=== PATIENT | male | born 1965 | race Caucasian/White ===

== ENCOUNTER 2019-09-07 10:33 | Inpatient (IN) ==
--- NOTE | 2019-09-07 11:19 | PROVIDER DOCUMENTATION ---
HPI-General Adult - General Chief Complaint: Shortness of Breath Stated Complaint: CHF,FLUID BUILD UP Time Seen by Provider: 09/07/19 11:05 Source: patient, family Allergies/Adverse Reactions: Patient Allergies Allergy/AdvReac Type Severity Reaction Status Date / Time vancomycin Allergy RASH Verified 05/25/19 15:24 Home Medications: Home Medication List Medication Instructions Recorded Confirmed Last Taken Type Apixaban [Eliquis] 2.5 mg PO BID 09/07/19 09/07/19 09/07/19 08:00 History 2.5 mg Clindamycin [Cleocin] 300 mg PO TID 09/07/19 09/07/19 09/07/19 08:00 History 300 mg Cyclobenzaprine [Flexeril] 10 mg PO TID 09/07/19 09/07/19 09/07/19 08:00 History 10 mg Fluoxetine [Prozac] 20 mg PO DAILY 09/07/19 09/07/19 09/07/19 08:00 History 20 mg Furosemide 40 mg PO BID 09/07/19 09/07/19 09/07/19 08:00 History 40 mg Gabapentin 600 mg PO Q12HR 09/07/19 09/07/19 09/07/19 08:00 History 600 mg Metformin [Glucophage] 500 mg PO BID 09/07/19 09/07/19 09/07/19 08:00 History 500 mg Omeprazole [Prilosec] 20 mg PO DAILY@0700 09/07/19 09/07/19 09/07/19 08:00 History 20 mg Potassium Chloride [Klor-Con M20] 20 meq PO DAILY 09/07/19 09/07/19 09/07/19 08:00 History 20 meq - History of Present Illness -Gen Adult Nature of Presenting Problems: Pt. is 54 yom that presents with c/o abdominal swelling, SOB, and weight gain since [place]. He denies any other complaints. Location of Pain/Injury: reports: none. denies: head, face, mouth, neck, chest, upper extremity, hand(s), abdomen, back, pelvis, genitalia, lower extremity, feet, upper body, lower body, generalized, other Pain Radiation: reports: no radiation. denies: arm(s), back, buttocks, chest, epigastric, feet, groin, jaw, flank (L), legs (lower), LLQ, LUQ, neck, periumbilical, flank (R), RLQ, RUQ, shoulder(s), scapula, scrotal, sternal notch, suprapubic, legs (upper), urethral, vaginal, other Quality of Pain: reports: none. denies: aching, pressure, tightness Severity: reports: moderate. denies: mild, severe Onset/Duration: reports: gradual, other (2 weeks) Timing: reports: still present. denies: improving, intermittent, getting worse Context/Activities at Onset: reports: none. denies: light activity, moderate activity, vigorous activity, recent emotional stress, recent physical stress, recent trauma history, possible bad food, cold exposure, eating, out of country travel, rest, sleep, sexual activity, other Modifying Factors: improves with: nothing Associated Symptoms: reports: shortness of breath, other (abdominal swelling). denies: denies symptoms, anxiety, arm pain, back/neck pain, chest pain, constipation, cough, diaphoresis, diarrhea, dizziness, EENT symptoms, fatigue, fever/chills, genitourinary problems, headaches, heartburn, joint pain, loss of appetite, malaise, muscle aches, sinus congestion/drainage, nausea, rash, seiz ure, sensory/motor loss, pain with inspiration, swelling/mass in abdomen, syncope, vomiting, weakness, trouble walking Similar Symptoms Previously?: Yes Recently seen or treated by another doctor?: No Review of Systems - Adult - REVIEW OF SYSTEMS - ADULT Constitutional: reports: no symptoms reported Eyes: reports: no symptoms reported Ears, Nose, Mouth & Throat: reports: no symptoms reported Cardiovascular: reports: no symptoms reported Respiratory: reports: see HPI, shortness of breath. denies: cough, pleurisy, wheezing Gastrointestinal: reports: see HPI, other (abdominal swelling). denies: hematemesis, difficulty swallowing, vomiting Genitourinary: reports: no symptoms reported Musculoskeletal: reports: no symptoms reported Integumentary: reports: no symptoms reported Neurological: reports: no symptoms reported Psychiatric: reports: no symptoms reported Past History - Adult - PAST MEDICAL HISTORY-ADULT Review of Records: reports: Old Records Reviewed, Nursing Assessment Review, Medications Reviewed, Social history reviewed & non-contributory. Major Childhood Illnesses: reports: denies history Cardiovascular: reports: HTN, hyperlipidemia. denies: arrhythmia, heart valve problem Respiratory: reports: denies history. denies: COPD Gastrointestinal: reports: denies history Musculoskeletal: reports: denies history Neurological: reports: denies history - PRIOR SURGERIES/PROCEDURES Surgical/Procedure History: reports: orthopedic (extremity) (multiple pelvic surgeries, left leg surgery) - IMMUNIZATION STATUS Childhood Immunizations: See Nurse Assessment Flu Vaccine: See Nurse Assessment - FAMILY HISTORY Family History: reviewed, not pertinent - SOCIAL HISTORY Smoking: denies Physical Exam-General - PHYSICAL EXAM-ADULT Initial Vital Signs Reviewed: Yes - CONSTITUTIONAL General Appearance: alert, mild distress. negative: anxious, lethargic, slow to respond, obtunded, combative - EYES Eyes: PERRL/EOMI, pink conjunctivae - HEAD, EARS, NOSE, MOUTH & THROAT HENMT: normocephalic/atraumatic, moist mucous membranes - NECK Neck: non-tender, full range of motion, supple, normal inspection - RESPIRATORY Respiratory: lungs clear, normal breath sounds. negative: crackles, rales, rhonchi, stridor, wheezing - CARDIOVASCULAR Cardiovascular: regular rate, rhythm, no edema, tachycardia. negative: extra beats, friction rub - GASTROINTESTINAL (ABDOMEN) Abdominal Exam: normal bowel sounds, distended. negative: hernia, mass - LYMPHATIC Lymphatic: no adenopathy - MUSCULOSKELETAL Back Exam: normal inspection, no CVA tenderness, no vertebral tenderness Extremity: normal inspection Peripheral Pulses: radial (R): 2+, radial (L): 2+ - SKIN Integumentary: normal color, normal turgor, warm/dry. negative: cyanosis, erythema, mottled, warm - NEUROLOGIC Neurologic: grossly normal, no motor/sensory deficits - PSYCHIATRIC Psych/Mental Status: normal mood/affect, normal thought content, normal thought process, oriented x 3. negative: anxious, paranoid, tearful Progress - PLAN OF CARE/RESULTS Progress/Plan/Lab Results: Vital Signs - 8 hr 09/07/19 10:38 Temperature 97.7 F Pulse Rate 106 H Respiratory Rate 20 Blood Pressure 107/74 O2 Sat by Pulse Oximetry 97 Orders Category Date Time Status Saline Loc NOW Care 09/07/19 11:14 Ordered CHEST-PORTABLE [RAD] Stat Exams 09/07/19 11:15 Ordered CBC WITH ELECTRONIC DIFF [HEME] Stat Lab 09/07/19 11:14 Uncollected CK PROFILE [SP CHEM] Stat Lab 09/07/19 11:14 Uncollected COMPREHENSIVE METABOLIC PANEL [CHEM] Stat Lab 09/07/19 11:14 Uncollected D-DIMER [COAG] Stat Lab 09/07/19 11:15 Uncollected PRO B-NATRIURETIC PEPTIDE Stat Lab 09/07/19 11:14 Ordered TROPONIN T Stat Lab 09/07/19 11:14 Uncollected EKG [EKG] Stat Ther 09/07/19 11:14 Ordered Laboratory Tests 09/07/19 09/07/19 09/07/19 11:29 11:29 11:29 WBC 6.48 RBC 4.48 L Hgb 12.2 L Hct 38.7 L MCV 86.4 MCH 27.2 MCHC 31.5 L RDW Std Deviation 17.5 H Plt Count 313 MPV 10.3 Immature Gran % (Auto) 0.0 Neut % (Auto) 70.0 Lymph % (Auto) 20.4 L [place] % (Auto) 7.3 Eos % (Auto) 1.5 Baso % (Auto) 0.8 Immature Gran # (Auto) 0.00 Neut # (Auto) 4.54 Lymph # (Auto) 1.32 [place] # (Auto) 0.47 Eos # (Auto) 0.10 Baso # (Auto) 0.05 D-Dimer, Quantitative Sodium 137 Potassium 4.0 Chloride 91 L Carbon Dioxide 24 L Anion Gap 22 BUN 21 Creatinine 1.6 H Estimated GFR/1.73 m2 45 BUN/Creatinine Ratio 13 Glucose 133 H Calculated Osmolality 279 Calcium 9.5 Total Bilirubin 1.05 H AST 108 H ALT 67 H Alkaline Phosphatase 73 Creatine Kinase 125 Troponin T Lqn-[id number] Pept 5682 H Total Protein 6.9 Albumin 4.5 Globulin 2.4 Albumin/Globulin Ratio 1.9 09/07/19 09/07/19 11:29 11:29 WBC RBC Hgb Hct MCV MCH MCHC RDW Std Deviation Plt Count MPV Immature Gran % (Auto) Neut % (Auto) Lymph % (Auto) [place] % (Auto) Eos % (Auto) Baso % (Auto) Immature Gran # (Auto) Neut # (Auto) Lymph # (Auto) [place] # (Auto) Eos # (Auto) Baso # (Auto) D-Dimer, Quantitative 15.06 H Sodium Potassium Chloride Carbon Dioxide Anion Gap BUN Creatinine Estimated GFR/1.73 m2 BUN/Creatinine Ratio Glucose Calculated Osmolality Calcium Total Bilirubin AST ALT Alkaline Phosphatase Creatine Kinase Troponin T 0.137 H Fhl-S-Xwbbhmkettq Pept Total Protein Albumin Globulin Albumin/Globulin Ratio Discussed results and plan of care with patient. Patient agrees with plan and verbalizes understanding. Result Diagrams: 09/07/19 11:29 09/07/19 11:29 - XRAY 1 XRAY Study: Chest ([facility] - [address], [address], [place] [address] [facility] - [address] [place] [address] Department of Imaging Patient: CRISTINA LANTIGUA Date: 09/07/19MR#: [id number] : 1965ADM Status: PRE ERAcct#: [id number] Age/Sex: 54/MRoom/Bed: Loc: ED Ordering Physician: Zeeshan Toro Family Physician: Ozzy Shepard Reason for Procedure: SOB Signed CHEST-PORTABLE - 09/07/2019 INDICATION: SOB COMPARISON: 08/25/2019 FINDINGS: There is a moderate right basilar pleural effusion. Lung volumes are severely low. There is cardiomegaly and pulmonary vascular congestion. No definite edema. IMPRESSION: Apparently new, moderate right basilar pleural effusion. Electronically signed by Mayur Hunter 09/07/2019 11:33 AM 09/07/19 1133 Interpreting Physician: Mayur Hunter MD Dictated Date/Time: 09/07/19 1133 cc: Zeeshan Toro; Ozzy Shepard) XRAY Interpretation: See note - CT/MRI 1 CT Study: Abdomen ([facility] - [address], [address], [place] [address] [facility] - [address] [facility] [place], [place] [address] Department of Imaging Patient: CRISTINA LANTIGUA Date: 09/07/19MR#: [id number] : 1965ADM Status: REG ERAcct#: [id number] Age/Sex: 54/MRoom/Bed: Loc: ED Ordering Physician: Zeeshan Toro Family Physician: Ozzy Shepard Reason for Procedure: SOB/elevated d-dimer Signed EXAM: CT ABD/PELVIS/PULM ARTERIES 09/07/2019 HISTORY: SOB/elevated d-dimer TECHNIQUE: This exam was performed using automated exposure control, adjustment of mA or kV according to patient size, and/or use of iterative reconstruction technique. COMMENT: There are no filling defects in the pulmonary arteries. There are coronary calcifications. There is a large right pleural effusion and a much smaller left pleural effusion. Compared to 05/25/2019 the left effusion is much smaller than it was. There continues to be compressive atelectasis on the right particularly in the lower lobe. The left lung is largely clear. The ribs are intact. There is otherwise no evidence of acute bony abnormality. ABDOMEN: There are no previous abdominal studies available for comparison. There is ascites which was also apparently present on the visualized portions of the abdomen on the thoracic study of 05/25/2019. The volume of fluid may be slightly greater. The aorta is not distended and the mesenteric and renal arteries are patent. There is a small splenule near the splenic hilus. The pancreas is unremarkable in appearance. There is apparent delayed nephrogram bilaterally. No evidence of hydronephrosis is present. The spleen is not enlarged. The adrenal glands are not enlarged. There are no apparent gallstones. No evidence of ga llbladder wall thickening is present. There is no evidence of bowel obstruction. No significant adenopathy is present. Pelvis: There is generalized subcutaneous edema present in the abdomen and upper pelvis consistent with anasarca. The appendix is normal in appearance. There is diverticulosis in the sigmoid colon without evidence of diverticulitis. There is no evidence of free fluid. There are postsurgical changes in the pelvis involving the pubic symphysis and rami anteriorly. There has been internal fixation of the left sacroiliac joint. No acute bony abnormalities are present. IMPRESSION: 1. No evidence of pulmonary emboli. 2. Improved left pleural effusion. 3. Slightly worsened ascites. Anasarca. Electronically signed by Maciej Pat 09/07/2019 1:27 PM 09/07/19 1327 Interpreting Physician: Maciej Pat MD Dictated Date/Time: 09/07/19 1321 cc: Zeeshan Toro; Ozzy Shepard), Pelvis, Thorax CT Results: See note - CONSULTS/PCP/HOSPITALIST Notification #1 *Consult/PCP/Hospitalist*: Trena Aparicio Time Discussed: 13:55 Reason/Comments: Admission Consult Disposition: Will see in ED, Admit Departure - Departure Date of Disposition Decision: 09/07/19 Time of Disposition Decision: 13:42 DIAGNOSIS: Pleural effusion Ascites Qualifiers: Ascites type: other type Qualified Code(s): R18.8 - Other ascites CHF (congestive heart failure) Qualifiers: Heart failure type: unspecified Heart failure chronicity: unspecified Qualified Code(s): I50.9 - Heart failure, unspecified Disposition: HOME 01 Certified Medical Emergency: Emergent Condition: Stable Referrals and Follow-Ups: Ozzy Shepard CRNP [Primary Care Provider] - - Critical Care Note This patient required my direct & personal management of CC.: Yes Total Time (mins): 35 Critical Care Statement: This patient required my direct personal management to treat or rule out processes, the absence of which, could potentiallly result in sudden, clinically significant life or limb threatening deterioration. Attestation - Physician/ ANKIT Attestation Patient care was provided by Advanced Practice Provider:: Yes Advanced Practice Provider:: Zeeshan Toro Advanced Practice Provider documentation review:: The Mid-level provider documentation, treatment plan and medical decision making was reviewed by the physician who agrees with all treatment and medical decision making by the MLP. The physician spent face to face time with patient:: No Advanced Practice Provider documentation review:: Supervising physician onsite and consulted in the evaluation and care of this patient. The physician did not have a face to face encounter with the patient.
--- NOTE | 2019-09-07 11:33 | ED EKG INTERP ---
This chart was entered by Toño Moreno Scribe, acting as scribe for Major Villafuerte MD. EKG Interpretation - EKG Time of EKG reading by physician:: 11:14 EKG Read and Signed by:: Major Villafuerte EKG Interpretation (*Must complete 3 of following elements*): Abnormal Rate: 107 Rhythm: NSR, Sinus tachycardia QRS: poor R wave progression ST Wave: non-specific ST changes Attestation - Physician/ ANKIT Attestation Patient care was provided by Advanced Practice Provider:: No The physician spent face to face time with patient:: Yes Advanced Practice Provider documentation review:: Supervising physician onsite and consulted in the evaluation and care of this patient. The physician did have a face to face encounter with the patient. This chart was documented by the indicated scribe, (Toño Moreno Scribe) and accurately reflects the services I performed and decisions made by Noy nicole Kent A., MD, as attested by the provider's signature.
--- NOTE | 2019-09-07 11:36 | Diag Imaging Result Doc PS360 ---
CHEST-PORTABLE - 09/07/2019 INDICATION: SOB COMPARISON: 08/25/2019 FINDINGS: There is a moderate right basilar pleural effusion. Lung volumes are severely low. There is cardiomegaly and pulmonary vascular congestion. No definite edema. IMPRESSION: Apparently new, moderate right basilar pleural effusion. Electronically signed by Mayur Hunter 09/07/2019 11:33 AM
--- NOTE | 2019-09-07 11:44 | EKG Report ---
Test Performed on : 09/07/2019 10:43:01 AM Test Reason : sob Blood Pressure : / mmHG Vent. Rate : 107 BPM Atrial Rate : 107 BPM P-R Int : 170 ms QRS Dur : 092 ms QT Int : 366 ms P-R-T Axes : 047 -08 057 degrees QTc Int : 488 ms Sinus tachycardia. Nonspecific T wave abnormality Abnormal ECG When compared with ECG of 25-MAY-2019 15:07, Nonspecific T wave abnormality no longer evident in Anterior leads Unconfirmed Result
[2019-09-07 11:45] LABS: BASO# 0.05 X1000 (0.0-0.2); BASO% 0.8 % (0.0-0.8); EOS% 1.5 % (0.0-10.0); HEMATOCRIT 38.7 % (42.0-52.0); HEMOGLOBIN 12.2 g/dL (14.0-18.0); LYMPH# 1.32 X1000 (1.2-3.4); LYMPH% 20.4 % (20.5-51.1); MCH 27.2 PG (27-31); MCHC 31.5 g/dL (33-37); MCV 86.4 FL (81-99); MONO# 0.47 X1000 (0.11-0.59); MONO% 7.3 % (1.7-9.3); MPV 10.3 FL (7.4-10.4); NEUT# 4.54 X1000 (1.4-6.5); PLT 313 X1000 (130-400); RBC 4.48 XMIL (4.7-6.1); RDW 17.5 % (11.5-14.5); WBC 6.48 X1000 (4.8-10.8)
[2019-09-07 12:28] LABS: ALB/GLOB RATIO 1.9; ALBUMIN 4.5 g/dL (3.5-5.0); CALCIUM 9.5 mg/dL (8.8-10.2); CREATININE 1.6 mg/dL (0.7-1.2); TOTAL BILIRUBIN 1.05 mg/dL (0.20-1.00); TOTAL PROTEIN 6.9 g/dL (6.3-8.3)
--- NOTE | 2019-09-07 13:29 | Diag Imaging Result Doc PS360 ---
EXAM: CT ABD/PELVIS/PULM ARTERIES 09/07/2019 HISTORY: SOB/elevated d-dimer TECHNIQUE: This exam was performed using automated exposure control, adjustment of mA or kV according to patient size, and/or use of iterative reconstruction technique. COMMENT: There are no filling defects in the pulmonary arteries. There are coronary calcifications. There is a large right pleural effusion and a much smaller left pleural effusion. Compared to 05/25/2019 the left effusion is much smaller than it was. There continues to be compressive atelectasis on the right particularly in the lower lobe. The left lung is largely clear. The ribs are intact. There is otherwise no evidence of acute bony abnormality. ABDOMEN: There are no previous abdominal studies available for comparison. There is ascites which was also apparently present on the visualized portions of the abdomen on the thoracic study of 05/25/2019. The volume of fluid may be slightly greater. The aorta is not distended and the mesenteric and renal arteries are patent. There is a small splenule near the splenic hilus. The pancreas is unremarkable in appearance. There is apparent delayed nephrogram bilaterally. No evidence of hydronephrosis is present. The spleen is not enlarged. The adrenal glands are not enlarged. There are no apparent gallstones. No evidence of gallbladder wall thickening is present. There is no evidence of bowel obstruction. No significant adenopathy is present. Pelvis: There is generalized subcutaneous edema present in the abdomen and upper pelvis consistent with anasarca. The appendix is normal in appearance. There is diverticulosis in the sigmoid colon without evidence of diverticulitis. There is no evidence of free fluid. There are postsurgical changes in the pelvis involving the pubic symphysis and rami anteriorly. There has been internal fixation of the left sacroiliac joint. No acute bony abnormalities are present. IMPRESSION: 1. No evidence of pulmonary emboli. 2. Improved left pleural effusion. 3. Slightly worsened ascites. Anasarca. Electronically signed by Maciej Pat 09/07/2019 1:27 PM
[2019-09-07] MEDS ORDERED: LASIX IV ONE (13:43)
--- NOTE | 2019-09-07 15:55 | EKG Report ---
Test Performed on : 09/07/2019 3:18:59 PM Test Reason : sob Blood Pressure : / mmHG Vent. Rate : 104 BPM Atrial Rate : 104 BPM P-R Int : 172 ms QRS Dur : 094 ms QT Int : 370 ms P-R-T Axes : 052 -08 085 degrees QTc Int : 486 ms Sinus tachycardia. with occasional premature ventricular complexes. Nonspecific T wave abnormality Abnormal ECG When compared with ECG of 07-SEP-2019 10:43, (Unconfirmed) premature ventricular complexes. are now present Unconfirmed Result
[2019-09-07] MEDS ORDERED: TYLENOL PO PRN (16:50)
[2019-09-07] MEDS ORDERED: ZOFRAN IV PRN (16:50)
[2019-09-07] MEDS: HUMALOG SUBQ SCH ×2 (17:19→20:28)
[2019-09-07] MEDS: FLEXERIL PO SCH (17:19)
[2019-09-07 18:06] LABS: URINE SOURCE CATH
[2019-09-07 18:11] LABS: BILIRUBIN URINE NEGATIVE (NEGATIVE); BLOOD URINE NEGATIVE (NEGATIVE); COLOR YELLOW; GLUCOSE URINE NEGATIVE (NEGATIVE); KETONE URINE NEGATIVE (NEGATIVE); LEUKOCYTES URINE NEGATIVE (NEGATIVE); NITRITE URINE NEGATIVE (NEGATIVE); PROTEIN URINE NEGATIVE (NEGATIVE); TURBIDITY URINE CLEAR (CLEAR); UR EPITHELIAL CELLS <10 /HPF (<10); URINE BACTERIA NEGATIVE /HPF; URINE RBC <10 /HPF (<10); URINE WBC <10 /HPF (<10); UROBILINOGEN URINE NORMAL (NORMAL)
--- NOTE | 2019-09-07 20:28 | HISTORY AND PHYSICAL ---
PRIMARY CARE PROVIDER: ALEJANDRA Stahl. CHIEF COMPLAINT: Shortness of breath, abdominal swelling and a 25 pound weight gain over the past 4 weeks. HISTORY OF PRESENTING ILLNESS: This is a 54-year-old male who presents to [facility] with complaints of shortness of breath, weight gain and abdominal swelling. States he has gained approximately 25 pounds in the past 4 weeks. Was seen yesterday at his primary care physician's office for the worsening shortness of breath and now comes in for evaluation. His workup showed a D-dimer of 15.06. We did a CT of the abdomen, pelvis and pulmonary arteries. No evidence of pulmonary emboli were noted. Slightly worsened ascites and anasarca in the abdomen. His troponin was elevated at 0.137. Creatinine was at 1.6. It appears that on his last labs of 08/25/2019 were normal at 1.2. His proBNP is 5682 and this is an increase from 08/25/2019 at 3907. His EKG showed sinus tachycardia 107 so he will be admitted to the PVC unit for further evaluation and treatment. PAST MEDICAL HISTORY: Of hypertension, hyperlipidemia, diabetes type 2, a DVT and PE. PAST SURGICAL HISTORY: Of a pelvic surgery and left lower extremity surgery after an accident. FAMILY HISTORY: Reviewed and noncontributory. SOCIAL HISTORY: Currently lives with family. Denies any tobacco, alcohol or illicit drug use. ALLERGIES: To vancomycin. HOME MEDICATIONS: Takes Eliquis 2.5 mg p.o. b.i.d., Cleocin 300 mg p.o. t.i.d. will be held, Flexeril 10 mg p.o. t.i.d., Prozac 20 mg p.o. daily, we will hold his Lasix 40 mg p.o. b.i.d., gabapentin 600 mg p.o. q.12 hours, will hold his metformin 500 mg p.o. b.i.d., Prilosec 20 mg p.o. daily and potassium 20 mEq p.o. daily. LABORATORY DATA: Showed a white blood cell count of 6.48, hemoglobin 12.2, hematocrit 38.7, platelet 313,000, D-dimer of 15. Sodium of 137, potassium 4, chloride 91, CO2 24, BUN of 21 with a creatinine of 1.6, glucose 133, creatine kinase of 125, troponin 0.137. ProBNP of 5682. EKG was sinus tachycardia at 107. Abdomen and pelvic CT and pulmonary artery CT showed no evidence of pulmonary emboli, improved left pleural effusion, slightly worsened ascites and anasarca. REVIEW OF SYSTEMS: He denied any fever, chills, blurred vision, dizziness, chest pain, coughing. He has been short of breath, had abdominal distention, 25 pound weight gain in 4 weeks, left lower extremity edema. Denied any nausea, vomiting, constipation, diarrhea, burning or hurting with urination. PHYSICAL EXAMINATION: On arrival he had a temperature of 97.7 degrees, pulse 106, respirations 20, blood pressure 107/74, saturating 97% on room air. At 1 point he did drop his O2 saturation on room air to 88% but it immediately came back up to 97 is currently saturating 97% on room air. GENERAL: This is a 54-year-old male who is sitting on the side of the bed and answers questions appropriately. HEENT: Normocephalic, atraumatic. Normal ENT inspection. Oropharynx and nares are clear. Pupils are equal, round, and reactive to light and accommodation. Extraocular movements are intact. NECK: Normal inspection, normal range of motion. LUNGS: Clear to auscultation bilaterally with equal lung expansion and chest wall movement. HEART: With regular rate and rhythm. No murmurs, rubs, or gallops. He was tachycardic earlier on arrival but that has improved. ABDOMEN: Firm, distended, bowel sounds are present x4 quadrants. MUSCULOSKELETAL: He has 5/5 strength x4 extremities. He does have 2 to 3+ pitting edema to his left lower extremity. NEUROLOGICAL: Cranial nerves 2-12 appear grossly intact. ASSESSMENT: 1. Suspected An acute congestive heart failure that would be new onset. 2. Acute kidney injury. 3. Elevated D-dimer ruled out for pulmonary embolism by CT. 4. Anasarca. 5. Elevated troponin . OUR PLAN: He will be admitted to the PVC unit, placed on telemetry. Will do a venous ultrasound of bilateral lower extremities, place a Tejada catheter, check an echocardiogram, place on diabetic diet, pattern blood sugars with sliding scale insulin. Lasix 40 mg IV q.12, will consult Cardiology. We are rechecking a cardiac profile and troponin now and we will continue home medications as previously identified. Further orders after seen by attending and by clinical services consultant. We will recheck a CBC, BMP in the a.m. Dictated by ALEJANDRA Tracy for Gabino Aparicio MD cc: ALEJANDRA Stahl MD I agree with most components of history, physical, assessment and plan. A separate addendum has been dictated. JARED
[2019-09-07] MEDS: LASIX IV SCH (20:29)
[2019-09-07] MEDS: NEURONTIN PO SCH (20:29)
[2019-09-07] MEDS: LOVENOX SUBQ SCH (20:29)
[2019-09-07] MEDS ORDERED: ELIQUIS PO SCH (21:00)
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
[2019-09-08 01:52] LABS: PROTEIN CREAT RATIO 0.3; UR CREAT RANDOM 85.9 mg/dL (14-26); UR CREAT RANDOM 86.7 mg/dL (14-26)
[2019-09-08] MEDS ORDERED: LASIX IV SCH (02:00)
[2019-09-08] MEDS: PRILOSEC PO SCH (06:02)
[2019-09-08] MEDS: HUMALOG SUBQ SCH ×4 (06:13→20:27)
[2019-09-08 06:14] LABS: BASO# 0.05 X1000 (0.0-0.2); BASO% 0.8 % (0.0-0.8); EOS# 0.18 X1000 (0.0-0.7); HEMATOCRIT 36.6 % (42.0-52.0); HEMOGLOBIN 11.3 g/dL (14.0-18.0); INR 1.57; LYMPH# 1.21 X1000 (1.2-3.4); LYMPH% 20.4 % (20.5-51.1); MCHC 30.9 g/dL (33-37); MCV 87.6 FL (81-99); MONO# 0.62 X1000 (0.11-0.59); MONO% 10.4 % (1.7-9.3); MPV 10.2 FL (7.4-10.4); NEUT# 3.88 X1000 (1.4-6.5); NEUT% 65.4 % (42.2-75.2); PLT 318 X1000 (130-400); RBC 4.18 XMIL (4.7-6.1); RDW 17.4 % (11.5-14.5); WBC 5.94 X1000 (4.8-10.8)
[2019-09-08 06:15] LABS: PTT 40.2 Seconds (22.3-41.8)
[2019-09-08 06:25] LABS: CALCIUM 9.5 mg/dL (8.8-10.2); CREATININE 1.8 mg/dL (0.7-1.2); POTASSIUM 3.7 mmol/L (3.5-5.1)
[2019-09-08 06:26] LABS: CHOLESTEROL 145 mg/dL (0-200); HDL 26 mg/dL (35-55); LDL 97 mg/dL; TRIGLYCERIDES 111 mg/dL (39-160); VLDL 22 mg/dL
[2019-09-08] MEDS: NEURONTIN PO SCH ×2 (08:12→20:27)
[2019-09-08] MEDS: FLEXERIL PO SCH ×3 (08:12→16:44)
[2019-09-08] MEDS: KLOR-CON PO SCH (08:12)
[2019-09-08] MEDS: PROZAC PO SCH (08:12)
[2019-09-08] MEDS: LASIX IV SCH ×2 (08:13→20:27)
[2019-09-08] MEDS ORDERED: ZAROXOLYN PO ONE (09:02)
--- NOTE | 2019-09-08 10:57 | PROGRESS NOTE ---
DATE: 09/08/2019 INTERVAL HISTORY: He did not respond very well to the intravenous dose of Lasix he had received yesterday, though he has only received 1 time 80 mg of IV Lasix. His creatinine increased from 1.6 to 1.8. His fractional excretion of sodium is 0.3. His echocardiogram is pending. His EKG was unremarkable. SUBJECTIVE: Denies any chest pain, shortness of breath. No new complaints. He denies shortness of breath at rest. OBJECTIVE: Vital Signs: Temperature 98.2 degrees, pulse 103, respiratory rate 16, blood pressure 120/90, saturating 99% on room air. General: On physical examination, not in acute distress Lungs: No wheeze, rhonchi, crackles. Cardiac: S1 and S2 normal. No murmur, rub, or gallop. Abdomen: Obese, soft. He has dullness to percussion in bilateral flanks and hypogastric region. Extremities: Bilateral lower extremity edema. ASSESSMENT: 1. Shortness of breath, bilateral lower extremity edema, ascites. 2. Elevated troponins. 3. Kidney dysfunction Acute vs Chronic. 4. History of left lower extremity deep vein thrombosis and pulmonary embolism. PLAN: Continue IV diuresis. Get echocardiogram. Add additional dose of metolazone. Plan of care discussed with him. His questions were answered. Follow up US lower extremities. cc: Gabino Aparicio MD MTDD
--- NOTE | 2019-09-08 15:02 | ECHO REPORT ---
ORDER DATE: 09/07/2019 ECHOCARDIOGRAPHIC MEASUREMENTS: 1. Interventricular septum 0.9. 2. Left ventricular posterior wall 1.4. 3. Diastolic diameter 4.4. 4. Left atrium 4. 5. Aorta 2.5. SUMMARY: 1. Aortic valve leaflets were sclerosed, trileaflet. 2. Tricuspid valve was normal. Mitral valve leaflets are normal. There is moderate mitral annular calcification. 3. There is biatrial enlargement. 4. Pulmonic valve was normal. 5. There was moderate tricuspid regurgitation. Peak velocity across the tricuspid valve was 3.3 m/sec. 6. Pulmonary artery systolic pressure of 49 mmHg. There is moderate mitral regurgitation. There is grade 3 diastolic dysfunction. 7. Left ventricle cavity size is normal with severely reduced systolic function. Estimated ejection fraction of 20%. There is global hypokinesis. 8. Peak velocity across the aortic valve less than 2 m/sec. There is no aortic stenosis or regurgitation. 9. There is no pericardial effusion or obvious intracardiac mass or thrombus seen. cc: MD Trena Stroud CRNP
[2019-09-08] MEDS: LOVENOX SUBQ SCH (20:27)
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
[2019-09-09] MEDS: PRILOSEC PO SCH (06:02)
[2019-09-09] MEDS: HUMALOG SUBQ SCH ×4 (06:15→21:33)
[2019-09-09 06:27] LABS: ALB/GLOB RATIO 1.7; ALBUMIN 4.4 g/dL (3.5-5.0); DIRECT BILIRUBIN 0.3 mg/dL (0.00-0.20); TOTAL BILIRUBIN 0.89 mg/dL (0.20-1.00)
[2019-09-09 06:33] LABS: CALCIUM 9.6 mg/dL (8.8-10.2); CREATININE 1.9 mg/dL (0.7-1.2); POTASSIUM 3.1 mmol/L (3.5-5.1)
[2019-09-09 08:08] LABS: IRON SATURATION 13 %; TIBC 347 ug/dL; TOTAL IRON 46 ug/dL (53-167); UNBOUND IRON 301 ug/dL (112-346)
[2019-09-09] MEDS ORDERED: COREG PO SCH (09:00)
--- NOTE | 2019-09-09 09:22 | Diag Imaging Result Doc PS360 ---
EXAM: US THORACENTESIS W/IMAGE GUIDE 09/09/2019 HISTORY: Large right pleural effusion TECHNIQUE: Ultrasound-guided right thoracentesis COMMENT: The risks and benefits of the procedure including the possibility of bleeding, infection, pneumothorax, or reaction to lidocaine was discussed with the patient and he agreed to the procedure. Following sterile preparation the skin posteriorly and administration 1% lidocaine to the skin and deeper soft tissues, the thoracentesis catheter was placed and 1.4 L of somewhat dark yellow turbid fluid was aspirated. This is sent to the laboratory in its entirety. IMPRESSION: Successful ultrasound-guided thoracentesis. Electronically signed by Maciej Pat 09/09/2019 9:19 AM
--- NOTE | 2019-09-09 09:35 | Diag Imaging Result Doc PS360 ---
EXAM: CHEST-2 VIEWS 09/09/2019 HISTORY: POST RT THORA TECHNIQUE: Upright inspiratory expiratory AP COMMENT: There is no evidence of pneumothorax. The right pleural effusion has been nearly completely evacuated. IMPRESSION: No evidence of pneumothorax. Electronically signed by Maciej Pat 09/09/2019 9:33 AM
[2019-09-09] MEDS: PROZAC PO SCH (09:58)
[2019-09-09] MEDS: NEURONTIN PO SCH ×2 (09:58→21:33)
[2019-09-09] MEDS: FLEXERIL PO SCH ×3 (09:58→16:32)
[2019-09-09] MEDS: LASIX IV SCH ×2 (09:58→21:35)
[2019-09-09] MEDS ORDERED: ZAROXOLYN PO ONE (10:00)
[2019-09-09 10:01] LABS: PH BODY FLUID 8; SPECIMEN PLEURAL FLUID
[2019-09-09] MEDS: KLOR-CON PO SCH ×3 (10:06→12:45)
[2019-09-09 10:28] LABS: BODY FLUID SOURCE PLEURAL FLUID; WBC BF 401 /cumm
[2019-09-09 10:29] LABS: MONOS 81 %; POLYS 19 %
--- NOTE | 2019-09-09 10:51 | Extremity Venous Study ---
PROCEDURE NAME: Venous U/S Bilateral Legs - 09/07/2019 PROCEDURE: Bilateral lower extremity venous images. REFERRING PHYSICIAN: Carolina. INTERPRETING PHYSICIAN: Ilir. GOLF BALL MARKER: Rodriguez. DESCRIPTION OF PROCEDURE IN DETAIL: The patient has elevated D-dimer, edema and shortness of breath. Bilateral lower extremity venous images accomplished. The common femoral, superficial femoral, deep femoral, popliteal, posterior tibial, peroneal, and greater saphenous veins are imaged bilaterally. The Doppler is used to evaluate the veins for spontaneity, phasicity, respiratory excursion, and distal augmentation. All veins are compressible. No intraluminal clot is seen. INTERPRETATION: No evidence of deep or superficial venous thrombosis in either lower extremity in the veins identified. cc: MD Trena De Leon CRNP
[2019-09-09 12:22] LABS: AMYLASE BODY FLUID 27 U/L; GLUCOSE BODY FLUID 122 mg/dL; TOTAL PROT BODY FLUID 3.9 g/dL
[2019-09-09 12:30] LABS: LDH BODY FLUID 99 U/L
--- NOTE | 2019-09-09 12:49 | PROGRESS NOTE ---
DATE: 09/09/2019 INTERVAL HISTORY: Mr. Staples got an echocardiogram which had severely depressed ejection fraction of 20%. Cardiology team had evaluated him and had ordered ultrasound-guided thoracentesis for diagnostic and therapeutic purposes considering he used to be in [place] before. I am seeing him after thoracentesis, which he underwent without any complications. SUBJECTIVE: Mr. Staples denies any chest pain. He is feeling better in terms of his shortness of breath. Denies any cough, nausea, vomiting, abdominal pain. He had a good urine output overnight. VITALS: Temperature of 97.8 degrees, pulse 72, respirations 16, blood pressure 120/80, saturating 98% on room air. He had 4 L urine output yesterday. PHYSICAL EXAMINATION: General: Not in acute distress. Oral cavity: Moist. Lungs: Air entry bilaterally equal with decreased air entry more on the left infrascapular region than right with inspiratory crackles. Cardiovascular: S1, S2 normal. Regular. No murmur or gallop. Abdomen: Soft, nontender. Extremities: Bilateral lower extremity edema, more pronounced on the left lower extremity. His abdominal ascites and wall edema appears to be better than before. LABS: No CBC today. BMP suggestive of hypokalemia which currently is being repleted. He does have elevation in his creatinine. Pleural fluid culture is pending. Initial labs suggest mononuclear pleocytosis. The other analyses are pending. Cardiology team had evaluated him and had suggested evaluation of coronary disease once he is clinically improved. ASSESSMENT AND PLAN: 1. Acute systolic congestive heart failure with ejection fraction of 20% with global hypokinesia with pulmonary artery pressure of 49 mmHg and grade 3 right diastolic dysfunction. Continue intravenous Lasix and give additional dose of metolazone. Follow up daily kidney function. I discussed with him about possible etiologies of systolic congestive heart failure with coronary artery disease being one of them. He would probably need nuclear medicine stress test eventually. I will appreciate Cardiology recommendations. 2. Elevated troponin which showed flat trend, likely in the setting of kidney dysfunction. He did not have any chest pain. 3. Acute kidney injury. His slight elevation in creatinine could be in the setting of diuretic use. He had received intravenous contrast for CT scan in May 2019, and he has been on oral Lasix since outpatient. He unfortunately also received a CT scan with IV contrast on admission when he was in the emergency room. This all could be contributing to his elevated creatinine. I will continue to monitor it. 4. History of left lower extremity deep vein thrombosis and pulmonary embolism in 2018. Lower extremity did not have any evidence of DVT. 5. History of non insulin-dependent diabetes mellitus with diabetic neuropathy. Continue home gabapentin and sliding scale insulin. 6. Others. I will start patient on carvedilol for his congestive heart failure. DISPOSITION: Continue to monitor patient in PVC. Plan of care today was discussed with the patient and his family at bedside. All of their questions have been satisfactorily answered. cc: Gabino Aparicio MD
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
[2019-09-09] MEDS: LOVENOX SUBQ SCH (21:33)
[2019-09-09] MEDS: COREG PO SCH (21:35)
[2019-09-10] MEDS: PRILOSEC PO SCH (06:07)
[2019-09-10 06:23] LABS: CALCIUM 9.7 mg/dL (8.8-10.2); CREATININE 1.7 mg/dL (0.7-1.2); MAGNESIUM 1.7 mg/dL (1.5-2.7); POTASSIUM 3.8 mmol/L (3.5-5.1)
[2019-09-10] MEDS: HUMALOG SUBQ SCH ×4 (06:29→21:04)
[2019-09-10] MEDS: KLOR-CON PO SCH (08:45)
[2019-09-10] MEDS: FLEXERIL PO SCH ×3 (08:45→21:08)
[2019-09-10] MEDS: PROZAC PO SCH (08:45)
[2019-09-10] MEDS: COREG PO SCH ×2 (08:45→21:07)
[2019-09-10] MEDS: NEURONTIN PO SCH ×2 (08:45→21:08)
[2019-09-10] MEDS: LASIX IV SCH ×2 (08:47→09:29)
[2019-09-10] MEDS: LASIX PO SCH ×2 (14:34→21:12)
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
[2019-09-10] MEDS: LOVENOX SUBQ SCH (21:07)
[2019-09-10] MEDS: PRINIVIL PO SCH (21:07)
--- NOTE | 2019-09-10 21:53 | PROGRESS NOTE ---
DATE: 09/10/2019 INTERVAL HISTORY: His pleural fluid analysis suggested lightly transudative effusion. SUBJECTIVE: Mr. Staples is feeling significantly better. He denies any chest pain. He denies any shortness of breath. We discussed about changing his IV Lasix to oral, and discontinuing urine catheter. He agreed. We discussed about monitoring his urine output on oral Lasix, and outpatient Nephrology and Cardiology followup. OBJECTIVE: vital signs: Temperature 98.4 degrees, pulse 98, respiratory rate 18, blood pressure 108/86, saturating 100% on room air. Input and output suggest -2.4 L yesterday, -200 mL so far today. Oral cavity is moist. Air entry bilaterally equal. No wheeze or rhonchi. His crackles in bilateral infrascapular region have significantly decreased. S1, S2 normal, regular. No murmur or gallop. Abdomen: Soft, nontender. Today is tympanic to percussion. Bilateral lower extremity edema has significantly decreased. He does not have jugular venous distention. LABORATORY DATA: No CBC today. BMP suggestive of resolution of hypokalemia. Creatinine stable at 1.7. MICROBIOLOGY: No positive data. IMAGING: No new imaging. ASSESSMENT AND PLAN: 1. Acute systolic congestive heart failure with ejection fraction of 20%, with global hypokinesia and pulmonary artery pressure of 49 mmHg, with grade 3 diastolic dysfunction. Change to oral Lasix and follow up with electrolytes and kidney function. He will need outpatient stress test to evaluate for etiology of his congestive heart failure. He has had symptoms since 3 months, so it was thought that he may not need urgent evaluation. I will keep him on carvedilol, and outpatient, he will need starting of RIGO inhibitors as tolerated. 2. Elevated troponin which showed a flat trend likely in the setting of kidney dysfunction. 3. Acute kidney injury. His slight elevation in creatinine should be in the setting of diuretic use. He had also received intravenous contrast for CT scan in May 2019, and he has been on oral Lasix since then. He will need outpatient Nephrology followup. 4. History of left lower extremity deep vein thrombosis and pulmonary embolism in 2018. Currently, ultrasound did not detect any deep vein thrombosis. 5. History of noninsulin-dependent diabetes mellitus and peripheral neuropathy. Continue home gabapentin and sliding scale insulin. 6. Disposition. I am planning discharge in the 24 hours if kidney function remains stable. I discussed with him about following up with Cardiology for final results of his pleural fluid cytology, though the initial study suggests transudative effusion. He is in agreement. cc: Gabino Apaircio MD
[2019-09-11] MEDS: HUMALOG SUBQ SCH (06:14)
[2019-09-11] MEDS: PRILOSEC PO SCH (06:17)
[2019-09-11 06:20] LABS: CALCIUM 9.6 mg/dL (8.8-10.2); POTASSIUM 3.3 mmol/L (3.5-5.1)
[2019-09-11] MEDS ORDERED: POTASSIUM CHLORIDE 20 MEQ/SWI 20 MEQ/100 ML IVPB IV ONE (07:45)
[2019-09-11] MEDS ORDERED: KLOR-CON PO ONE (07:45)
[2019-09-11] MEDS: NEURONTIN PO SCH (08:26)
[2019-09-11] MEDS: FLEXERIL PO SCH (08:26)
[2019-09-11] MEDS: PRINIVIL PO SCH (08:26)
[2019-09-11] MEDS: PROZAC PO SCH (08:26)
[2019-09-11] MEDS: COREG PO SCH (08:26)
[2019-09-11 08:40] VITALS: BP 113/87
[2019-09-11] MEDS ORDERED: LASIX PO SCH (09:00)
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
== END 2019-09-11 11:35 | disposition home or self-care (01) | DRG 291 ==
LOC: ED 10:33 → EDIPHOLD 14:27 → 2N 16:37
PROVIDERS: ATTEND Internal Medicine